=== PATIENT | female | born 1960 | race Caucasian/White ===

== ENCOUNTER 2018-02-14 18:39 | Emergency (ER) | payer OTHER ==
[~2018-02-14] VITALS: Ht 162.6 cm; Wt 98.4 kg
--- OUTSIDE RECORDS SUMMARY | 2018-02-14 18:42 | XMS REPORT | Summary of Care ---
Author Author [facility] [place] Organization [facility] [place] Address Unknown Phone Unavailable Encounter HQ Encntr_taya(FIN) [id number] Date(s): 01/09/17 - 01/09/17 [facility] [place] [address] [place] [phone] Discharge Disposition: Home or Self Care Attending Physician: Edwin Ford MD Vital Signs No data available for this section Problem List No data available for this section Allergies, Adverse Reactions, Alerts No data available for this section Medications No data available for this section Results No data available for this section Immunizations No data available for this section Procedures No data available for this section Social History No data available for this section Assessment and Plan No data available for this section
--- OUTSIDE RECORDS SUMMARY | 2018-02-14 18:42 | XMS REPORT | Summary of Care ---
Author Author [facility] - [place] Organization [facility] [place] Address Unknown Phone Unavailable Encounter HQ José Antoniontr_taya(FIN) [id number] Date(s): 01/25/16 - 01/25/16 [facility] - [place] [address] [phone] Discharge Disposition: Home or Self Care Attending [...]
--- OUTSIDE RECORDS SUMMARY | 2018-02-14 18:42 | XMS REPORT | Continuity of Care Document ---
Author Author Yesenia davison [facility] Interface Address Unknown Phone Unavailable Problems Problem Status Onset Date Classification Date Reported Comments Source ROUTINE Active 12/14/2015 [facility] R06.02 - SHORTNESS OF BREATH Active 01/09/2015 [facility] [place] Medications Medication Details Route Status Patient Instructions Ordering Provider Order Date Source Allergies, Adverse Reactions, Alerts Substance Category Reaction Severity Reaction type Status Date Reported Comments Source Immunizations Immunization Date Given Site Status Last Updated Comments Source Results Order Name Results Value Reference Range Date Interpretation Comments Source Chest 2 views DX Chest 2 views DX HISTORY: Z79.899 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 COMPARISON: Study dated 01/09/2017. FINDINGS: The lungs are well-inflated and clear. The cardiomediastinal silhouette and pulmonary vasculature are within normal limits. Minimal thoracic spondylosis is present. IMPRESSION: No radiographic evidence of acute cardiopulmonary disease. 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 There is no pleural effusion or pneumothorax. No acute skeletal abnormality. IMPRESSION: No acute abnormality. 01/09/2017 - - Read by: Karla Amador MD Dictated Date/time: 01/09/17 09:41 Electronically Signed by: Karla Amador MD 01/09/17 09:41 FINAL REPORT SAHARA Tucker Chest 2 views DX Chest 2 views DX Exam: Two-view chest x-ray Reason for Exam: L40.9 Psoriasis, unspecified, Z79.899 Other residential (current) drug therapy Comparison Exam: 05/31/2013 Discussion: Cardiomediastinal silhouette is within normal limits. Both hemidiaphragms well visualized. No pulmonary edema or pleural effusions. No focal lung consolidations. Trachea is midline. No acute bony abnormalities. Impression: 1. Unremarkable Two-view chest x-ray. 01/25/2016 - - Read by: Tavo Arroyo MD Dictated Date/time: 01/25/16 10:04 Electronically Signed by: Tavo Arroyo MD 01/25/16 10:05 FINAL REPORT [facility] Digital Mammo Screen Chuck MA w johnathon Digital Mammo Screen Chuck MA w johnathon - DIGITAL MAMMO SCREEN CHUCK MA W [place] BILATERAL DIGITAL SCREENING MAMMOGRAM 3D/2D WITH CAD: 01/11/2016 CLINICAL: Routine. 2D digital mammographic images and 3D digital tomosynthesis images were obtained in the CC and MLO projections. Current study was evaluated with a Computer Aided Detection (CAD) system. Comparison is made to exams dated: 03/31/2014 mammogram, 08/31/2006 mammogram and 04/10/2005 mammogram - [facility]. The tissue of both breasts is heterogeneously dense, which could obscure detection of small masses. There are benign appearing calcifications in both breasts. There also are benign appearing densities in both breasts. Additionally there is a benign appearing intramammary node in the left breast. There also are benign appearing nodules in the left breast. No significant masses, calcifications, or other findings are seen in either breast. There has been no significant interval change. IMPRESSION: BENIGN There is no mammographic evidence of malignancy. A 1 year screening mammogram is recommended. Grabiel zamudio/penrad:01/11/2016 09:24:07 Math Professor: Yesenia Montes De [place], [facility] This exam was dictated and interpreted by [id number] for [facility]. letter sent: Normal [facility] Mammogram BI-RADS: 2 Benign 01/11/2016 - - Read by: Grabiel Omalley MD Dictated Date/time: 01/11/16 09:24 Electronically Signed by: Grabiel Omalley MD 01/11/16 09:24 FINAL REPORT [facility] wo contrast CT Chest wo contrast CT EXAM: CT CHEST WITHOUT CONTRAST DATE: 01/26/2015 at 1050 INDICATION: Shortness of breath COMPARISON: None available. TECHNIQUE: The chest CT was performed without intravenous contrast. The chest was scanned from apices to bases. Reformatted sagittal and coronal images were obtained and reviewed. FINDINGS: TRACHEA/BRONCHI/ESOPHAGUS: The trachea and central bronchi are patent. The esophagus and thyroid are unremarkable. MEDIASTINUM: The heart is normal in size. Small amount of pericardial effusion is seen anteriorly. VESSELS: Measurements and appearance of the great vessels are normal. Scattered atherosclerotic calcifications are seen in the aortic arch and descending thoracic aorta. LYMPH NODES: There is no evidence of cervical, axillary, internal mammary, or mediastinal lymphadenopathy. Evaluation of the hilar lymph nodes is limited due to the lack of IV contrast. LUNGS/PLEURA: No focal consolidations or suspicious pulmonary nodules or masses are seen. 4 mm elongated perifissural nodule adjacent to the minor fissure is compatible with an incidental intrapulmonary lymph node. No pneumothorax or pleural effusions. BONES/SOFT TISSUE: Mild degenerative changes of the thoracic spine are present. No destructive bony lesions are identified. The soft tissue is unremarkable. UPPER ABDOMEN: Visualized portions of the liver, kidneys, pancreas and spleen are unremarkable. Calcifications of the splenic artery are present. CONCLUSION: No acute findings in the chest. 01/26/2015 - - This report was dictated by a Lidar Scientist/Fellow. I have personally reviewed the images as well as the Resident's interpretation and agree with the findings. Read by: Oc Nielsen MD Resident: Oc Nielsen MD Dictated Date/time: 01/26/15 13:46 Electronically Signed by: Sudheer Rose MD 01/26/15 19:52 FINAL REPORT ANAYA Davison Abdomen/Pelvis w IV contrast CT Abdomen/Pelvis w IV contrast CT EXAM: CT ABDOMEN AND PELVIS WITH CONTRAST DATE: 01/26/2015 at 1055 hours. INDICATION: 573.8 Hepatoptosis. ADDITIONAL INFORMATION: None. COMPARISON: None. TECHNIQUE: Helical acquisition of the abdomen and pelvis was obtained from the lung bases to the symphysis pubis after administration of oral contrast, and after uneventful administration of 100 cc of Omnipaque 300 intravenous contrast in the venous and delayed phases of contrast enhancement. Axial, sagittal and coronal images were interpreted. FINDINGS: Lower thorax is as reported on concurrently obtained chest CT of the same date. Liver is in expected position. The liver, bile ducts, gallbladder, spleen, pancreas, and adrenals show no significant abnormalities. Stomach is normal. Visualized small bowel and colon have normal caliber. Diverticulosis coli without evidence of diverticulitis. Fatty replaced appendix is otherwise normal with normal caliber and no surrounding inflammation. No mesenteric abnormalities. No free fluid or free air. Kidneys, collecting systems and ureters demonstrate normal concentration and excretion of contrast into a normal urinary bladder. Uterus is surgically absent. No adnexal abnormalities. Aorta and IVC have normal caliber. Abdominal and pelvic lymph nodes are normal. No retroperitoneal abnormalities. Degenerative changes are seen. Partially sacralized L6 segment with left a pseudoarthrosis and the space narrowing and L5-L6 are identified. No worrisome osseous lesions. No subcutaneous/soft tissue abnormalities. IMPRESSION: 1. No evidence of hepatoptosis. 2. Diverticulosis coli without evidence of diverticulitis. 3. 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 01/26/2015 - - Read by: Lars Fried MD Dictated Date/time: 01/26/15 12:24 Electronically Signed by: Lars Fried MD 01/26/15 12:32 [facility] Vital Signs Vital Sign Value Date Comments Source Encounters Location Location Details Encounter Type Encounter Number Reason For Visit Attending Provider ADM Date DC Date Status Source [facility] [place] [facility] [id number] Matt Zazueta 03/31/2014 04/01/2014 [facility] [place] [facility] [id number] Dennis Hunt 01/26/2015 [facility] [id number] Riley Chen 01/11/2016 01/12/2016 [facility] [place] [facility] [id number] Edwin Ford 01/25/2016 01/26/2016 [facility] [place] [facility] [place] [facility] [id number] Edwin Ford 01/09/2017 01/10/2017 [facility] [place] Procedures Procedure Code Date Perfomer Comments Source
--- OUTSIDE RECORDS SUMMARY | 2018-02-14 18:42 | XMS REPORT | Summary of Care ---
Author Organization Unknown Address Unknown Phone Unavailable Encounter HQ Encntr_taya([facility]) [id number] Date(s): 03/31/14 - 03/31/14 [facility] Outpatient Imaging - [address] [address] [place] Discharge Disposition: Home Physician Attending: Matt Zazueta DO Reason for Visit V76.12 - SCREEN MAMMOGRA Problem List No data available for this section Allergies, Adverse Reactions, Alerts No data available for this section Medications No data available for this section Medications Administered During Your Visit No data available for this section Immunizations No data available for this section
--- OUTSIDE RECORDS SUMMARY | 2018-02-14 18:42 | XMS REPORT | Summary of Care ---
Author Author [facility] Outpatient Imaging [facility] [place] Address Unknown Phone Unavailable Encounter HQ Encntr_alias(FIN) [id number] Date(s): 01/26/15 - 01/26/15 [facility] Imaging [place] [address] [place] [phone] Discharge Disposition: Home Attending Physician: Dennis Hunt MD Vital Signs No data available for [...]
--- OUTSIDE RECORDS SUMMARY | 2018-02-14 18:42 | XMS REPORT | Summary of Care ---
Author Author [facility] Organization [facility] Address Unknown Phone Unavailable Encounter HQ Encntr_alias(FIN) [id number] Date(s): 01/11/16 - 01/11/16 [facility] [address] [place] [address] Discharge Disposition: Home or Self Care Attending Physician: Riley Chen MD Referring Physician: Riley Chen MD Vital Signs No data available for [...]
[2018-02-14] MEDS ORDERED: CEFTRIAXONE SOD 1 GM VIAL IM NR (19:15)
[2018-02-14] MEDS ORDERED: DONNATAL/LIDOCAINE/MAALOX 30 ML SUSP PO ONE (19:15)
[2018-02-14] MEDS ORDERED: ONDANSETRON HCL 4 MG ORAL DISINTEGRATING TAB PO ONE (19:15)
== END 2018-02-14 19:59 | disposition home or self-care (01) ==
LOC: FSED 18:39
DX: R10.30 Lower abdominal pain, unspecified (principal); N39.0 Urinary tract infection, site not specified; N30.91 Cystitis, unspecified with hematuria; K29.00 Acute gastritis without bleeding
CPT/HCPCS: 87086; 99283; Q0162